=== PATIENT | female | born 1985 | race Caucasian/White ===

== ENCOUNTER 2019-01-09 12:17 | Emergency (ER) | payer MEDICAID, OTHER ==
--- NOTE | 2019-01-09 12:45 | EDM.PDOC ---
ED HPI GENERAL MEDICAL PROBLEM - General Chief Complaint: Abdominal Pain Stated Complaint: ABDOMINAL PAIN Time Seen by Provider: 01/09/19 12:44 Source of Information: Reports: Patient History Limitations: Reports: No Limitations - History of Present Illness INITIAL COMMENTS - FREE TEXT/NARRATIVE: 33-year-old female presents to the ED with acute onset of diffuse lower abdominal pain. She states she was lying on the couch about 11:15 when she developed sudden onset of severe sharp stabbing pain which she is unable to localize to either quadrant. She states it took a lengthy period of time for the pain to ease up. She is still has pain primarily suprapubically and right lower quadrant of the abdomen and pressure in the rectal vault or vagina. She states her last bowel movement was yesterday. Have been functioning well. She denies any dysuria urgency frequency but denies any fever or chills. She is aware of some peritoneal irritation with walking and lifting her legs causing pain as well as riding in the vehicle. She's had no previous abdominal surgery. She's had an's supraumbilical belly ring which she has had removed. She's not sure she could be . Not exactly sure of her last normal menstrual period date he believes around December 17 is the first day of her menstrual cycle. Onset: Today Onset Date: 01/09/19 Onset Time: 11:15 Duration: Hour(s):, Improving, Other Location: Reports: Abdomen (Developed acute onset of diffuse lower abdominal pain not able to localize which side. At present pain is felt more in the right than on the left. No evident her lower back and in her perineum.) Quality: Reports: Ache, Pressure Severity: Moderate Improves with: Reports: None Worsens with: Reports: None Context: Reports: Other (Spontaneous occurrence while at rest). Denies: Activity, Exercise, Lifting, Sick Contact, Trauma Associated Symptoms: Reports: No Other Symptoms. Denies: Diaphoresis, Fever/ Chills, Headaches, Loss of Appetite, Malaise, Nausea/Vomiting, Rash, Seizure, Shortness of Breath, Syncope, Weakness Treatments NAIL KEGGER: Reports: Other (see below) (None.) Bilateral Abdomen Pain Score (Numeric/FACES): 10 - Related Data Allergies Allergy/AdvReac Type Severity Reaction Status Date / Time No Known Drug Allergies Allergy N/A Verified 01/09/19 12:35 Home Meds: Home Meds Multivitamin [Daily Multiple Vitamin] 1 each PO DAILY 01/09/19 [History] Past Medical History - Past Health History Medical/Surgical History: Denies Medical/Surgical History Social & Family History - Tobacco Use Smoking Status *Q: Never Smoker - Caffeine Use Caffeine Use: Reports: Coffee, Soda - Recreational Drug Use Recreational Drug Use: No - Living Situation & Occupation Living situation: Reports: Single Occupation: Unemployed ED ROS GENERAL - Review of Systems Review Of Systems: See Below Constitutional: Denies: Fever, Chills, Malaise, Weakness, Fatigue, Decreased Appetite, Weight Loss HEENT: Reports: No Symptoms Respiratory: Reports: No Symptoms Cardiovascular: Reports: No Symptoms Endocrine: Reports: No Symptoms GI/Abdominal: Reports: No Symptoms : Reports: No Symptoms Musculoskeletal: Reports: No Symptoms Skin: Reports: No Symptoms Neurological: Reports: No Symptoms Psychiatric: Reports: No Symptoms Hematologic/Lymphatic: Reports: No Symptoms Immunologic: Reports: No Symptoms ED EXAM, GI/ABD - Physical Exam Exam: See Below Exam Limited By: No Limitations General Appearance: Alert, WD/WN, No Apparent Distress Eyes: Bilateral: Normal Appearance Throat/Mouth: Normal Inspection, Normal Lips, Normal Oropharynx Head: Atraumatic, Normocephalic Neck: Normal Inspection, Supple, Non-Tender, Full Range of Motion. No: Lymphadenopathy (L), Lymphadenopathy (R) Respiratory/Chest: No Respiratory Distress, Lungs Clear, Normal Breath Sounds, No Accessory Muscle Use Cardiovascular: Normal Peripheral Pulses, Regular Rate, Rhythm, No Edema, No Gallop, No Murmur, No Rub GI/Abdominal Exam: Soft, No Abnormal Bruit, Distended (All sounds are hyperactive in all 4 quadrants. The abdomen is slightly distended particularly right hemiabdomen with diffuse tympany.), Tender, Abnormal Bowel Sounds. No: Guarding, Rigid (Tender right lower quadrant without guarding or rebound), Rebound Back Exam: Normal Inspection, Full Range of Motion. No: CVA Tenderness (L), CVA Tenderness (R) Extremities: Normal Inspection, Normal Range of Motion, Non-Tender, No Pedal Edema Neurological: Alert, Oriented, CN II-XII Intact, Normal Cognition Psychiatric: Normal Affect, Normal Mood Skin Exam: Warm, Dry, Intact, Normal Color, No Rash Course - Vital Signs Last Recorded V/S: Last Vital Signs Temp 36.6 C 01/09/19 12:28 Pulse 65 01/09/19 12:28 Resp 16 01/09/19 12:28 BP 114/77 01/09/19 12:28 Pulse Ox 100 01/09/19 12:28 - Orders/Labs/Meds Orders: Active Orders 24 hr Category Date Time Status Abdomen 1V Flat [CR] Stat Exams 01/09/19 14:04 Taken Magnesium Citrate [Citrate of Magnesia] Med 01/09/19 14:37 Once 210 ml PO ONETIME ONE Labs: Laboratory Tests 01/09/19 01/09/19 Range/Units 13:07 13:07 Urine Color Yellow (Yellow) Urine Appearance Clear (Clear) Urine pH 7.5 (5.0-8.0) Ur Specific [place] 1.020 (1.005-1.030) Urine Protein Negative (Negative) Urine Glucose (UA) Negative (Negative) Urine Ketones Negative (Negative) Urine Occult Blood Trace-intact H (Negative) Urine Nitrite Negative (Negative) Urine Bilirubin Negative (Negative) Urine Urobilinogen 0.2 (0.2-1.0) Ur Leukocyte Esterase Trace H (Negative) Urine RBC 5-10 H (0-5) /hpf Urine WBC 5-10 H (0-5) /hpf Ur Epithelial Cells 0-5 (0-5) /hpf Amorphous Sediment Rare H (NOT SEEN) /hpf Urine Bacteria Few H (FEW) /hpf Urine Mucus Rare (FEW) /hpf Urine HCG, Qual Negative (NEGATIVE) - Radiology Interpretation Free Text/Narrative:: 33-year-old female presents to the ED with acute onset of diffuse lower abdominal pain starting about 1115 hrs. this morning while she was lying on the couch. 7 onset of severe sharp stabbing pain that radiated into her back and she felt a down in the rectal vault perineal area. It took a long period of time for the pain to ease up to the point that she could get up to use the cell phone and get someone to look after her 3-year-old and make her way to the hospital. While she thought she might have to call the ambulance. She's had no previous abdominal surgery. She's taken nothing for pain. She has had no nausea or vomiting. Examination reveals hyperactive bowel sounds in all 4 quadrants. Mild tympany throughout the right hemiabdomen particularly the cecum. She has pain localized to the right lower quadrant with mild tenderness. There is no guarding or rebound tenderness. Working diagnosis is likely constipation. Plan she will have a urinalysis with a urine test. If this is normal she will have a KUB performed. - Re-Assessments/Exams Free Text/Narrative Re-Assessment/Exam: 01/09/19 14:11 beta-hCG finding came back and is negative. We'll proceed now with KUB 01/09/19 14:39 KUB reveals increased stool throughout the cecum most of the transverse colon and portions of the descending colon. The rectal vault is empty. Was reexamined she still has very active bowel sounds in all 4 quadrants. No such she is more tenderness on the left lower quadrant and anterior thigh than she is on the right side. Clinically I do not feel she has any signs of a gynecological problem and did not perform a pelvic exam at this time. Will be placed on Citroma 7 ounces by mouth mixed with 5 ounces of juice to cleanse her bowel. She'll return if she is not markedly improved after bowel cleanse. Advised that if she had a simple ovarian cyst that is ruptured Motrin 600 mg every 6 hours or Aleve 2 tablets every 8 hours will relieve the inflammation and discomfort. Departure - Departure Time of Disposition: 14:40 Disposition: Home, Self-Care 01 Condition: Fair Clinical Impression: Constipation by delayed colonic transit Abdominal pain Qualifiers: Abdominal location: lower abdomen, unspecified Qualified Code(s): R10.30 - Lower abdominal pain, unspecified - Discharge Information *PRESCRIPTION DRUG MONITORING PROGRAM REVIEWED*: Not Applicable *COPY OF PRESCRIPTION DRUG MONITORING REPORT IN PATIENT CHANCE: Not Applicable Referrals: Brooke Gordon PA-C [Primary Care Provider] - Forms: ED Department Discharge Additional Instructions: Evaluation the emergent today in regards to sudden onset of severe diffuse lower abdominal pain at about 1115 hrs. today while you are lying on the couch. Initially the pain was very severe but diminished over time. When you examine in the ED were found to have no fever and normal vital signs. Bowel sounds are very active in all 4 quadrants with increased air noted throughout the abdomen on percussion. Mild tenderness right lower quadrant of the abdomen with no signs of peritonitis to suggest a surgical abdomen. Because of the possibility of a urinalysis and tests were done. Unfortunately took a good length of time to obtain the negative test. After this an x-ray of the abdomen was performed which reveals increased stool throughout both the right mid and left hemicolon's. The rectal vault is empty. Reexamination again shows very active bowel sounds in all 4 quadrants with tympany to percussion suggesting constipation and increased air within the colon as the cause of your pain. Bowel cleanse with taking 7 ounces of magnesium citrate with 5 ounces of juice of choice or Gatorade /Powerade once. This will start work in 1-2 hours in your bowels will work 3-4 times on average. This should provide relief of abdominal pain. Follow-up if not markedly improved or condition worsens over the next 12 hours. - My Orders Last 24 Hours: My Active Orders 01/09/19 14:04 Abdomen 1V Flat [CR] Stat 01/09/19 14:37 Magnesium Citrate [Citrate of Magnesia] 210 ml PO ONETIME ONE - Assessment/Plan Last 24 Hours: My Active Orders 01/09/19 14:04 Abdomen 1V Flat [CR] Stat 01/09/19 14:37 Magnesium Citrate [Citrate of Magnesia] 210 ml PO ONETIME ONE
[2019-01-09] MEDS ORDERED: Magnesium Citrate Solution 296 ML Bottle PO ONE (14:37)
--- NOTE | 2019-01-09 14:54 | CR ---
Abdomen: Supine view of the abdomen was obtained. Slight increased stool within the right and descending colon is seen. Bowel gas pattern is otherwise unremarkable. No abnormal calcifications or soft tissue abnormality is seen. Bony structures are unremarkable. Impression: 1. Slight increased stool within the colon. Diagnostic code #2
== END 2019-01-09 14:50 | disposition home or self-care (01) ==
LOC: JD.ED 12:17
DX: K59.01 Slow transit constipation (principal)
CPT/HCPCS: 74018; 81001; 81025; 99284; A9270; 99283